=== PATIENT | male | born 1960 | race Caucasian/White ===

== ENCOUNTER 2016-10-20 18:08 | Emergency (ER) | payer BC ==
[2016-09-25 12:40] VITALS: BMI 31.3
[~2016-10-20 18:08] MED LIST: ASPIRIN325 MG PO; DILANTIN100 MG PO; LISINOPRIL10 MG PO; NORVASC2.5 MG PO
[2016-10-20 18:54] LABS: BASOPHILS 0.5 % (0.0-2.0); EOSINOPHILS 2.2 % (0-7); HEMATOCRIT 41.5 % (42.0-54.0); HEMOGLOBIN 14.4 g/dL (13.5-17.5); IMMATURE GRANULOCYTES 0.2 % (0-5); LYMPHOCYTES 24.6 % (15-50); MCH 31.4 pg (26.0-34.0); MCHC 34.7 g/dL (31.0-37.0); MCV 90.4 fL (80.0-100.0); MEAN PLATELET VOLUME 10.8 fL (7.4-10.4); MONOCYTES 12.7 % (2-11); NEUTROPHILS 59.8 % (40-80); PLATELET COUNT 119 10x3/uL (130-400); RBC 4.59 10x6/uL (4.20-6.10); RDW 13.1 % (11.5-14.5); WBC 9.6 10x3/uL (4.8-10.8)
[2016-10-20 19:04] LABS: APTT 26.5 SECONDS (22.8-39.4); INR 1.11 (0.85-1.17); PROTIME 14.2 SECONDS (11.6-15.0)
[2016-10-20 19:13] LABS: ALBUMIN 3.7 g/dL (3.4-5.0); ANION GAP 11.7 mmol/L (8-16); BILIRUBIN - TOTAL 0.29 mg/dL (0.2-1.3); CALCIUM 9.3 mg/dL (8.5-10.1); CARBON DIOXIDE 28.3 mmol/L (21.0-32.0); CREATININE - SERUM 1.4 mg/dL (0.6-1.3); PHENYTOIN (DILANTIN) 6.5 ug/mL (10.0-20.0); PROTEIN - SERUM 6.9 g/dL (6.4-8.2)
== END 2016-10-20 22:32 | disposition home or self-care (01) ==
LOC: D.ER 18:08
PROVIDERS: Family Medicine
DX: I82.401 Acute embolism and thrombosis of unspecified deep veins of right lower extremity (principal)

== ENCOUNTER → 2017-08-22 09:39 | Outpatient (CLI) | payer BC ==
[2016-09-25 12:40] VITALS: BMI 31.3
--- NOTE | 2017-08-25 07:59 | EEG ---
PATIENT:ROSEANN MORA DATE OF SERVICE: 08/22/17 MEDICAL RECORD: [id number] DATE OF : 58 LOCATION: [facility] ADMISSION DATE: 08/22/17 REFERRING PHYSICIAN: INTERPRETING PHYSICIAN: NIKOLAY MCGRATH MD DATE OF SERVICE: 08/22/2017 Referred by myself as an outpatient. ELECTROENCEPHALOGRAM NUMBER: [id number]. DATE OF EXAMINATION: 08/22/2017 at 10:20 a.m. TECHNICAL DATA: This electroencephalographic recording consisted of approximately 20 minutes of data collection utilizing the international 10/20 system of electrode placement and both referential and non-referential montages. Sixteen channels of electrocerebral recording are accompanied by a 17th channel dedicated to the electrocardiographic rhythm and 2 channels of electromyographic recording. Recording is performed entirely in the waking state utilizing activation by hyperventilation and photic stimulation. ELECTROENCEPHALOGRAPHIC DATA: The entirety of the recorded electrocerebral activity is performed in the waking state. Electromyographic artifact is prominent and rapid eye movements are seen. The posterior dominant background consists of a symmetric, rhythmic, waxing and waning 9-10 Hz alpha activity, which is suppressed by eye opening. No abnormal or focal slowing is identified. No epileptiform discharges are seen. Hyperventilation and photic stimulation induced no abnormal change in the recorded electrocerebral activity. INTERPRETATION: Normal (awake). This is a normal waking electroencephalographic recording. TRANSINT:[id number] Voice Confirmation ID: [id number] DOCUMENT ID: [id number] NIKOLAY MCGRATH MD at 0759 CC: [id number] DICTATION DATE: 08/23/17 0702 MANAGER CARGO: 08/23/17 1100 DEP CLI 08/22/17 [facility] [address] [place] [address]
== END | disposition home or self-care (01) ==
LOC: D.CN 09:39
DX: I63.231 Cerebral infarction due to unspecified occlusion or stenosis of right carotid arteries (principal); R56.9 Unspecified convulsions

== ENCOUNTER → 2018-04-03 06:55 | Outpatient (CLI) | payer BC ==
[2016-09-25 12:40] VITALS: BMI 31.3
== END | disposition home or self-care (01) ==
LOC: D.MRI 06:55
DX: M47.26 Other spondylosis with radiculopathy, lumbar region (principal)

== ENCOUNTER → 2018-07-16 10:34 | Outpatient (CLI) | payer BC ==
[2016-09-25 12:40] VITALS: BMI 31.3
== END | disposition home or self-care (01) ==
LOC: D.US 10:34
DX: R60.0 Localized edema (principal); Z86.718 Personal history of other venous thrombosis and embolism

== ENCOUNTER → 2019-05-21 13:05 | Outpatient (CLI) | payer BC, MEDICARE ==
[2016-09-25 12:40] VITALS: BMI 31.3
== END | disposition home or self-care (01) ==
LOC: D.RAD 13:05
PROVIDERS: ATTEND Nurse Practitioner Family
DX: M75.101 Unspecified rotator cuff tear or rupture of right shoulder, not specified as traumatic (principal)

== ENCOUNTER 2020-06-16 20:51 | Emergency (ER) | payer MEDICARE ==
[~2020-06-16] VITALS: Ht 180.3 cm; Wt 102.3 kg
[2020-06-16 20:56] VITALS: Ht 180.3 cm; Wt 102.3 kg
[2020-06-16] MEDS ORDERED: ELIQUIS5 MG PO (23:31)
[2020-06-16 23:51] VITALS: BP 157/89
== END 2020-06-16 23:51 | disposition home or self-care (01) ==
LOC: D.ER 20:51
DX: I82.402 Acute embolism and thrombosis of unspecified deep veins of left lower extremity (principal); Z86.73 Personal history of transient ischemic attack (TIA), and cerebral infarction without residual deficits; I10 Essential (primary) hypertension; M79.605 Pain in left leg

== ENCOUNTER → 2020-07-27 08:40 | Outpatient (CLI) | payer MEDICARE ==
[2020-06-16 20:56] VITALS: BMI 31.4
[~2020-07-27 08:40] MED LIST changes: +ELIQUIS5 MG PO
== END | disposition home or self-care (01) ==
LOC: D.US 08:40
PROVIDERS: ATTEND Family Medicine
DX: R60.0 Localized edema (principal)

== ENCOUNTER → 2021-03-02 09:30 | Outpatient (CLI) | payer MEDICARE ==
[2020-06-16 20:56] VITALS: BMI 31.4
== END | disposition home or self-care (01) ==
LOC: D.MRI 09:30
PROVIDERS: ATTEND Family Medicine
DX: M51.86 Other intervertebral disc disorders, lumbar region (principal); M54.41 Lumbago with sciatica, right side